=== PATIENT | female | born 1990 | race Caucasian/White ===

== ENCOUNTER → 2016-06-22 | Outpatient (CLI) | payer BC ==
[~2016-06-22] MED LIST: AMIT75TA37 PO; ORAL BIRTH CONTROL
--- NOTE | 2016-06-23 08:12 | DI ---
Indication: ITS.REASON: N83.209 UNSP OVARIAN CYST PROCEDURE: US PELVIC NON OB W/TRANS VAG: Encounter: Initial Comparison: February 10, 2010 FINDINGS: Transvaginal and transabdominal pelvic imaging was performed. The uterus measures 6.3 x 2.9 x 4.2 cm. The parenchyma is homogeneous without fibroids. The endometrial stripe measures 2 mm in thickness. There is no evidence of focal endometrial mass. Both ovaries are identified and normal in appearance. The right ovary measures 2.7 x 1.1 x 2.2 cm. The left ovary measures 2.7 x 1.9 x 2.8 cm. There are no abnormal adnexal masses detected. Normal Doppler flow to both ovaries. No free fluid. IMPRESSION: Normal pelvic sonogram. .
== END ==
LOC: IMA 16:27
PROVIDERS: ATTEND Family Medicine
DX: K21.9 Gastro-esophageal reflux disease without esophagitis (principal); E03.9 Hypothyroidism, unspecified; N83.209 Unspecified ovarian cyst, unspecified side
CPT/HCPCS: 36415; 84439; 84443; 86677

== ENCOUNTER → 2016-07-27 | Outpatient (CLI) | payer BC | LOC: LAB 16:52 | PROVIDERS: ATTEND Family Medicine | DX: R19.5 Other fecal abnormalities (principal) | CPT/HCPCS: 87507 ==